=== PATIENT | female | born 1965 | race Caucasian/White ===

== ENCOUNTER 2021-07-21 16:30 | Emergency (ER) | payer OTHER, SELFPAY ==
[2021-07-21 16:42] VITALS: BP 145/91; PULSE 80; RESP 18; TEMP 36.9; O2SAT 98
--- NOTE | 2021-07-21 16:48 | ED.DENTAL ---
HPI - Dental/Oral General Chief complaint: Dental/Oral Stated complaint: toothache Time Seen by Provider: 07/21/21 16:49 Source: patient, RN notes reviewed and old records reviewed Mode of arrival: ambulatory Limitations: no limitations History of Present Illness HPI Narrative: 56-year-old female who presents [facility] with complaints of dental abscess which started yesterday on gum above #4 tooth which had previously been crowned with a root canal performed on many years ago. Patient also has broken off tooth #3 which she states happened at beginning of . She states that he called her dentist today and since it has been a year since she saw him he wouldn't order an antibiotic for her. Patient has swelling with some redness to gum area above #4 tooth and she states that area busted open today with purulent drainage noted. patient denies any difficulty with swallowing or any difficulty with her breathing. Patient has been taking Ibuprofen and Tylenol for her discomfort and has been using salt water gargles and also peroxyl mouth rinse. MD Complaint: tooth pain Location: Tooth # (#4) Onset (ago): day(s) (24 hours) Duration: constant Severity: moderate Severity scale (1-10): 4 Relieving factors: NSAIDs Related Data Allergies Allergy/AdvReac Type Severity Reaction Status Date / Time No Known Allergies Allergy Verified 07/21/21 16:52 Review of Systems Review of Systems: CONSTITUTIONAL: Denies fever, chills, or sweats. EYES: Denies visual changes, redness, or discharge. ENT: Denies rhinorrhea, congestion, sore throat, or otalgia, Positive for some right facial swelling above #4 tooth where abscess noted on gum. CARDIOVASCULAR: Denies chest pain, palpitations, or edema. RESPIRATORY: Denies cough or dyspnea. GASTROINTESTINAL: Denies abdominal pain, nausea, vomiting, or diarrhea. GENITOURINARY: Denies dysuria or hematuria. SKIN: Denies rash or itching. MUSCULOSKELETAL: Denies back pain, joint pain, or myalgia. NEUROLOGIC: Denies headache, numbness, or weakness. PSYCHIATRIC: Denies anxiety or depression. All systems reviewed & are unremarkable except as noted in HPI and below PMFSH Past Medical History Medical History (Updated 07/21/21 @ 17:32 by Tonie Yi NP) Asthma as child Closed left arm fracture Collar bone fracture Surgical History Surgical History (Updated 07/21/21 @ 17:29 by Tonie Yi NP) H/O tubal ligation History of tonsillectomy Previous section X3 Family History Family History (Updated 07/21/21 @ 17:30 by Tonie Yi NP) Other No significant family history Social History Social History (Updated 07/21/21 @ 17:31 by Tonie Yi NP) Smoking packs per day: 0.75 Smoking cigarettes per day: 15.0 Years smoked: 12 Smoking pack-years: 9.00 Smoking status: Current every day smoker Tobacco type: cigarettes Alcohol intake: current Alcohol use details: social Substance use: never Living arrangements: with family Gender identity (if verbalized by the patient): Female Comments At time of signature, agree with nursing past medical, surgical, social and family history. There is no relevant family history pertinent to the presenting complaint Exam Narrative: GENERAL: Well-appearing, well-nourished, and in no acute distress. HEAD: Normocephalic, atraumatic. EYES: PERRLA and EOMI. ENT: Nares clear, no rhinorrhea or epistaxis. Mucous membranes moist.TM's normal with good light reflex, throat pink with no lesions or exudates,gum above #4 tooth swollen and red, with some edema noted to facial area near affected gum, No Clement angina noted, no difficulty with swallowing. NECK: Supple. no lymphadenopathy CHEST: Clear to auscultation. No respiratory distress.SAO2 98% on room air HEART: Regular rate and rhythm. No murmur heard. Normal peripheral pulses. ABDOMEN: Soft, nontender, nondistended, normal active bowel sounds. EXTREMITIES: Normal range of
== END 2021-07-21 17:07 | disposition home or self-care (01) ==
PROVIDERS: Emergency Provider Registered Nurse
DX: K04.7 Periapical abscess without sinus (principal); F17.219 Nicotine dependence, cigarettes, with unspecified nicotine-induced disorders
CPT/HCPCS: 99213; G0463